=== PATIENT | female | born 1985 | race Hispanic/Latino ===

== ENCOUNTER 2021-10-24 21:16 | Emergency (ER) | payer SELFPAY ==
[~2021-10-24] VITALS: Ht 165.1 cm; Wt 104.3 kg
[2021-10-24] MEDS ORDERED: DEXAMETHASONE SOD PHOS 10 MG/1 ML VIAL IM ONE (21:30)
[2021-10-24] MEDS ORDERED: AMOXICILLIN500 MG PO (21:43)
== END 2021-10-24 21:46 | disposition home or self-care (01) ==
LOC: ER 21:22
DX: J02.0 Streptococcal pharyngitis (principal); E11.65 Type 2 diabetes mellitus with hyperglycemia
CPT/HCPCS: 36415; 82948; 83518; 99283; J1100

== ENCOUNTER 2022-10-07 03:01 | Emergency (ER) | payer SELFPAY ==
[~2022-10-07] VITALS: Ht 165.1 cm; Wt 104.3 kg
[~2022-10-07 03:01] MED LIST: AMOXICILLIN500 MG PO
[2022-10-07] MEDS ORDERED: ONDANSETRON HCL INJ 2MG/ML 2ML 2 MG/ML VIAL IV STA (03:20)
[2022-10-07] MEDS ORDERED: Morphine 4mg INJECTION 4 MG/ML INJ IV ONE (03:30)
[2022-10-07] MEDS ORDERED: SODIUM CHLORIDE 0.9% 1000ML 1,000 ML IV ONE (03:30)
[2022-10-07 03:36] LABS: BASOPHILS # (AUTO) 0.1 (0.0-0.1); BASOPHILS % 0.6 % (0.0-1.0); EOSINOPHILS # (AUTO) 0.2 (0.0-0.4); EOSINOPHILS % 1.4 % (0.0-6.0); HEMATOCRIT 49.9 % (34.2-44.1); HEMOGLOBIN 17.1 g/dL (12.0-16.0); LYMPHOCYTES # (AUTO) 5.1 (1.0-3.2); LYMPHOCYTES % 36.7 % (18.0-39.1); MEAN CORPUSCULAR HEMOGLOBIN 30.3 pg (28-32); MEAN CORPUSCULAR HGB CONC 34.3 g/dL (31-35); MEAN CORPUSCULAR VOLUME 88.5 fL (81-99); MONOCYTES # (AUTO) 1.1 (0.2-0.8); MONOCYTES % 8.1 % (4.4-11.3); NEUTROPHILS # (AUTO) 7.3 (2.1-6.9); NEUTROPHILS % 52.7 % (38.7-80.0); PLATELET COUNT 308 x10e3/uL (140-360); RED BLOOD COUNT 5.64 x10e6/uL (3.6-5.1); RED CELL DISTRIBUTION WIDTH 11.4 % (11.7-14.4)
[2022-10-07 03:38] LABS: CLARITY,URINE SL CLOUDY (CLEAR); COLOR,URINE YELLOW (YELLOW); KETONES,URINE 2+ (NEGATIVE); LEUKOCYTE ESTERASE ,URINE TRACE (NEGATIVE); NITRITE,URINE POSITIVE (NEGATIVE); PROTEIN,URINE DIPSTICK 1+ (NEGATIVE); URINE UROBILINOGEN 0.2 mg/dL (0.2 - 1)
[2022-10-07 03:43] LABS: BACTERIA,URINE MANY /HPF; EPITHELIAL CELLS,URINE FEW /LPF
[2022-10-07 03:58] LABS: ANION GAP 14.5 mmol/L (8-16); CALCIUM 9.3 mg/dL (8.4-10.2); CREATININE, SERUM 0.69 mg/dL (0.57-1.11); POTASSIUM 3.5 mmol/L (3.5-5.1)
[2022-10-07] MEDS ORDERED: IOPAMIDOL 370 MG/ML 100 ML INFUS..BTL INJ ONE (05:26)
[2022-10-07] MEDS ORDERED: KETOROLAC TROMETHAMINE 30 MG/ML VIAL IV STA (05:42)
[2022-10-07] MEDS ORDERED: METFORMIN HCL500 MG PO (05:49)
[2022-10-07] MEDS ORDERED: CEFDINIR300 MG PO (05:49)
[2022-10-07] MEDS ORDERED: PYRIDIUM200 MG PO (05:49)
[2022-10-07] MEDS ORDERED: KETOROLAC TROME10 MG PO (05:49)
[2022-10-07] MEDS ORDERED: CEFTRIAXONE 1 GM VIAL ONE (05:59)
[2022-10-07] MEDS ORDERED: ONDANSETRON HCL INJ 2MG/ML 2ML 2 MG/ML VIAL ONE (06:03)
== END 2022-10-07 06:00 | disposition home or self-care (01) ==
LOC: ER 03:10
DX: R50.9 Fever, unspecified (principal); N39.0 Urinary tract infection, site not specified; R10.9 Unspecified abdominal pain; E11.65 Type 2 diabetes mellitus with hyperglycemia; E28.2 Polycystic ovarian syndrome; F17.210 Nicotine dependence, cigarettes, uncomplicated
CPT/HCPCS: 36415; 74177; 80053; 81001; 81025; 83690; 85025; 99284; J0696; J1885; J2270; J2405; J7030; Q9967

== ENCOUNTER 2022-11-11 02:21 | Emergency (ER) | payer SELFPAY ==
[~2022-11-11] VITALS: Ht 165.1 cm; Wt 104.3 kg
[~2022-11-11 02:21] MED LIST changes: +CEFDINIR300 MG PO; +KETOROLAC TROME10 MG PO; +METFORMIN HCL500 MG PO; +PYRIDIUM200 MG PO
[2022-11-11] MEDS ORDERED: PREDNISONE 20 MG TAB PO STA (02:29)
[2022-11-11] MEDS ORDERED: KETOROLAC TROMETHAMINE 60 MG/2 ML VIAL IM ONE (02:30)
[2022-11-11] MEDS ORDERED: PREDNISONE 20 MG TAB ONE (02:46)
[2022-11-11] MEDS ORDERED: KETOROLAC TROMETHAMINE 60 MG/2 ML VIAL ONE (02:46)
[2022-11-11 02:50] LABS: CLARITY,URINE SL CLOUDY (CLEAR); COLOR,URINE YELLOW (YELLOW); LEUKOCYTE ESTERASE ,URINE TRACE (NEGATIVE); NITRITE,URINE NEGATIVE (NEGATIVE); PROTEIN,URINE DIPSTICK NEGATIVE (NEGATIVE)
[2022-11-11 02:51] LABS: KETONES,URINE NEGATIVE (NEGATIVE); URINE UROBILINOGEN 0.2 mg/dL (0.2 - 1)
[2022-11-11 02:55] LABS: AMORPHOUS SEDIMENT,URINE MODERATE (FEW); BACTERIA,URINE FEW /HPF; EPITHELIAL CELLS,URINE MANY /LPF
[2022-11-11] MEDS ORDERED: ULTRAM 50MG50 MG PO (03:47)
== END 2022-11-11 03:50 | disposition home or self-care (01) ==
LOC: ER 02:31
DX: M25.561 Pain in right knee (principal); M54.31 Sciatica, right side; E11.9 Type 2 diabetes mellitus without complications; E28.2 Polycystic ovarian syndrome
CPT/HCPCS: 72100; 73562; 81001; 81025; 99283; J1885; J7512